=== PATIENT | female | born 1980 | race Caucasian/White ===

== ENCOUNTER → 2022-05-19 | Outpatient (CLI) | payer SELFPAY, OTHER ==
--- NOTE | 2022-05-19 10:27 | CT_ITS ---
STUDY: CT ABDOMEN AND PELVIS WITH CONTRAST REASON FOR EXAM: Female, 41 years old. PELVIC/PERINEAL PAIN. Worsening pain. RADIATION DOSAGE (If Supplied By Facility): CTDIvol = ( 11.9 ) mGy, DLP = ( 682.77 ) mGycm TECHNIQUE: Transaxial images were obtained from the dome of the diaphragm to the symphysis pubis with oral contrast. Oral and amp; IV Readi-CAT and amp; 100mL Isovue-300 was administered. Sagittal and coronal images were reconstructed. Individualized dose optimization techniques were used for this CT. COMPARISON: None. FINDINGS: The visualized lung bases are unremarkable. The visualized portions of the heart are within normal limits. Normal liver. Normal gallbladder and extrahepatic biliary system. Normal spleen. Normal pancreas. Normal bilateral adrenal glands. Normal right kidney. Normal left kidney. There is a small hiatal hernia. Normal small intestine. A large amount of fecal material is seen in the right hemicolon. The patient is status post appendectomy. Normal abdominal aorta. Normal inferior vena cava. Normal retroperitoneum. Normal urinary bladder. ESSURE clips are seen in the fallopian tubes bilaterally. A dominant follicle measuring 1.6 cm is seen in the left ovary. There is a small umbilical hernia containing fat. Small benign-appearing bilateral inguinal lymph nodes. Normal osseous structures. CT/Abdomen/Pelvis WITH Contrast IMPRESSION: Large amount of fecal material is seen in the colon. The patient is status post appendectomy. A dominant follicle is seen in the left ovary. Electronically Signed: Cecilio Harkins MD at 12:01 EST ,
== END | disposition home or self-care (01) ==
LOC: CT 10:24
PROVIDERS: Referring Provider Obstetrics & Gynecology; Visit Provider Obstetrics & Gynecology
DX: R10.2 Pelvic and perineal pain (principal); K44.9 Diaphragmatic hernia without obstruction or gangrene; K42.9 Umbilical hernia without obstruction or gangrene; Z90.89 Acquired absence of other organs
CPT/HCPCS: 74177; Q9967

== ENCOUNTER → 2022-07-26 | Outpatient (CLI) | payer OTHER, SELFPAY ==
[2022-07-26 15:55] LABS: Absolute Lymphocyte Count 1.72 X10^3/uL (0.83-4.51); Absolute Neutrophil Count 3.8 X10^3/uL (2.0-7.7); Basophil# 0.03 X10^3/uL; Basophil% 0.5 % (0-1); Eosinophil# 0.11 X10^3/uL; Eosinophils% 1.7 % (0-5); Hematocrit 39.1 % (37-47); Hemoglobin 13.3 g/dL (12.0-15.0); Lymphocyte # 1.72 X10^3/ul (0.83-4.51); Lymphocyte % 27.3 % (19-41); Mean Corpuscular Hgb 30.9 pg (27.0-32.0); Mean Corpuscular Volume 90.7 fL (81-99); Mean Platelet Vol. 9.7 fl (6.2-12.0); Monocyte# 0.65 X10^3/uL; Monocyte% 10.3 % (0-10); NRBC Flagged by Analyzer 0 % (0-5); Neutrophil # 3.77 X10^3/uL (2.7-7.7); Neutrophil % 59.9 % (47-70); Platelet Count 274 K/mm3 (150-450); RBC Distribution Width CV 11.8 % (11.6-14.6); RBC Distribution Width SD 39.5 fl (35.1-43.9); Red Blood Count 4.31 M/mm3 (4.2-5.4); White Blood Count 6.3 K/mm3 (4.4-11.0)
[2022-07-26 16:43] LABS: ALB/GLOB Ratio 1.3 RATIO (0.9-2.4); AST(SGOT) 7 U/L (15-37); Alanine Aminotransfer ALT/SGPT 18 U/L (13-56); Albumin, Serum 4.2 g/dL (3.2-5.0); Alkaline Phosphatase 47 U/L (45-117); Anion Gap 7 (5-15); BUN 14 mg/dL (7-18); BUN/Creat Ratio 17.2 RATIO (10-20); CRP < 2.90 mg/L (0.0-3.0); Calcium,Total 9.2 mg/dL (8.5-10.1); Chloride 109 mmol/L (98-107); Creatinine, Serum 0.81 mg/dL (0.55-1.02); EST Glomerular Filtration Rate 83 mL/min (>60); Est Glom Filt Rate - Afr Amer 100 mL/min (>60); Globulin 3.3 g/dL (2.2-4.2); Glucose 90 mg/dL (74-106); Potassium 3.6 mmol/L (3.5-5.1); Protein, Total 7.5 g/dL (6.4-8.2); Sodium Level 141 mmol/L (136-145); Thyroid Stim Hormone (TSH) 0.98 uIU/mL (0.358-3.74)
[2022-07-26 19:34] LABS: Erythrocyte Sedimentation Rate 4 mm/hr (0-30)
== END | disposition home or self-care (01) ==
LOC: LAB 15:18
PROVIDERS: PCP Family Medicine; Visit Provider Nurse Practitioner Adult Health
DX: K59.00 Constipation, unspecified (principal); R68.81 Early satiety
CPT/HCPCS: 36415; 80053; 84443; 85025; 85652; 86140

== ENCOUNTER 2022-08-10 09:43 | Day surgery (SDC) | payer OTHER, SELFPAY ==
[2022-08-10] VITALS (17 sets, daily range): BP systolic 96–143; BP diastolic 58–103; PULSE 70–111; RESP 14–24; TEMP 36.1–36.5; O2SAT 96–100; BMI 28.1
--- NOTE | 2022-08-10 10:29 | CT_ITS ---
STUDY: CT ABDOMEN AND PELVIS WITH CONTRAST REASON FOR EXAM: Female, 41 years old. Abd pain, constipation RADIATION DOSAGE (If Supplied By Facility): CTDIvol = ( 13.89 ) mGy, DLP = ( 688.46 ) mGycm TECHNIQUE: Transaxial images were obtained from the dome of the diaphragm to the symphysis pubis without oral contrast. IV 100mL Isovue-370 was administered. Sagittal and coronal images were reconstructed. Individualized dose optimization techniques were used for this CT. COMPARISON: Comparison is made with prior study dated 05/19/2022. FINDINGS: The visualized lung bases are unremarkable. The visualized portions of the heart are within normal limits. Normal liver. Normal gallbladder and extrahepatic biliary system. Normal spleen. Normal pancreas. Normal bilateral adrenal glands. Normal right kidney. Normal left kidney. Normal visualized stomach. Normal small intestine. Normal colon. The appendix is visualized and appears normal. Normal abdominal aorta. Normal inferior vena cava. Normal retroperitoneum. Normal urinary bladder. Minimal amount of free fluid is seen in the cul-de-sac. Small follicles are seen in the left ovary.ESSURE devices are seen in both fallopian tubes. IUD is seen within the anterior peritoneal fat in the right lower quadrant. Normal abdominal wall. Normal osseous structures. CT/Abdomen/Pelvis W IV Cont ONLY IMPRESSION: Minimal amount of free fluid in the cul-de-sac. Small follicles are seen in both ovaries. IUD device is seen in the peritoneal fat overlying the right lower anterior abdominal wall. Electronically Signed: Cecilio Harkins MD at 12:15 EST ,
[2022-08-10 10:50] LABS: Absolute Lymphocyte Count 1.38 X10^3/uL (0.83-4.51); Absolute Neutrophil Count 3.2 X10^3/uL (2.0-7.7); Basophil# 0.03 X10^3/uL; Basophil% 0.6 % (0-1); Eosinophils% 1.9 % (0-5); Hematocrit 40.3 % (37-47); Hemoglobin 14.5 g/dL (12.0-15.0); Lymphocyte # 1.38 X10^3/ul (0.83-4.51); Lymphocyte % 26.6 % (19-41); Mean Corpuscular Hgb 31.9 pg (27.0-32.0); Mean Corpuscular Volume 88.8 fL (81-99); Mean Platelet Vol. 9.5 fl (6.2-12.0); Monocyte# 0.48 X10^3/uL; Monocyte% 9.3 % (0-10); NRBC Flagged by Analyzer 0 % (0-5); Neutrophil # 3.18 X10^3/uL (2.7-7.7); Neutrophil % 61.4 % (47-70); Platelet Count 239 K/mm3 (150-450); RBC Distribution Width CV 11.6 % (11.6-14.6); RBC Distribution Width SD 37.5 fl (35.1-43.9); Red Blood Count 4.54 M/mm3 (4.2-5.4); White Blood Count 5.2 K/mm3 (4.4-11.0)
[2022-08-10] MEDS: Morphine 4 MG/ML Syringe IV (10:53)
[2022-08-10] MEDS: 0.9% Normal Saline 1,000 ML 1000 ML IV (10:54)
[2022-08-10 10:58] LABS: Mucous, Urine 0 SEEN /hpf (<or=2+); Red Blood Cells-Urine 0 SEEN /hpf (0-5)
[2022-08-10 11:01] LABS: ALB/GLOB Ratio 1.5 RATIO (0.9-2.4); AST(SGOT) 5 U/L (15-37); Alanine Aminotransfer ALT/SGPT 16 U/L (13-56); Albumin, Serum 4.4 g/dL (3.2-5.0); Alkaline Phosphatase 38 U/L (45-117); Anion Gap 9 (5-15); BUN 13 mg/dL (7-18); BUN/Creat Ratio 16.5 RATIO (10-20); Calcium,Total 9.4 mg/dL (8.5-10.1); Chloride 110 mmol/L (98-107); Creatinine, Serum 0.79 mg/dL (0.55-1.02); EST Glomerular Filtration Rate 86 mL/min (>60); Est Glom Filt Rate - Afr Amer 104 mL/min (>60); Estimated Creatinine Clearance 75.62 ml/min; Globulin 2.9 g/dL (2.2-4.2); Glucose 96 mg/dL (74-106); Potassium 3.4 mmol/L (3.5-5.1); Protein, Total 7.3 g/dL (6.4-8.2); Sodium Level 141 mmol/L (136-145)
[2022-08-10 11:01] LABS: Color, Urine Straw (Yellow); Glucose, Dipstick Normal (Normal); Ketone-Dipstick Negative (Negative); Leukocyte Esterase-Dipstick 25 /ul (Negative); Nitrite-Dipstick Negative (Negative); Occult Blood-Urine Negative /ul (Negative); Protein-Dipstick Negative (Negative); Urine Bilirubin Dipstick Negative (Negative); Urine Clarity Sl. Cloudy (Clear); Urine Urobilinogen Normal (Normal); Urine pH 6.5 (5.0 - 8.0)
[2022-08-10 11:07] LABS: Bacteria 1+ /hpf (None Seen); Internal QC Validated? YES +Cl - CLEAR BKGD; Pregnancy, Urine Negative Negative; Squamous Epithelial Cells - UA 0-5 SEEN /hpf (5-10); White Blood Cells 0-5 SEEN /hpf (0-5)
[2022-08-10 11:10] LABS: Lactic Acid 1.1 mmol/L (0.4-1.9)
--- NOTE | 2022-08-10 13:35 | HP.PCM.OB_ITS ---
History and Physical Date of Admission: 08/10/22 Chief complaint: Abdominal pain History present illness: 41-year-old arrives with chronic abdominal pain that worsened today. Patient feels pain several times a week but today felt much worse. Feels constant cramping and pain. Denies fevers, chills, chest pain, shortness of breath. Obstetric history: with a history of vaginal deliveries x3 Past medical history: None Medications: None Past surgical history: Open appendectomy, oophorectomy, Essure device placement, D&C x2 Allergies: Compazine Family history: Denies history DVT or PE Social history: Denies smoking, alcohol use, drug use Review of systems: Besides above pertinent positives a full review of systems was performed and found to be negative Physical exam: Vitals: Blood pressure 136/103 pulse 70 respiratory 14 temperature 97 Fahrenheit SPO2 100% on room air General: Overall comfortable mildly ill HEENT: Normocephalic/atraumatic no cervical lymphadenopathy Cardiac/respiratory: No use of accessory muscles, nonlabored breathing Abdomen: Soft, mildly bloated, mildly tender in all 4 quadrants no rebound tend erness or guarding Extremities: No peripheral edema normal peripheral pulses Psych: Normal affect, demeanor nonpressured speech Labs: White blood cell count 5.2, hemoglobin 14.5, hematocrit 40.3% platelets 239. Sodium 141 potassium 3.4 creatinine 0.79 lactic acid 1.1 AST [address] of abdomen pelvis: May CT of abdomen pelvis after further review shows no radiology reading of abdominal IUD, further review of imaging myself notes abdominal IUD. CT scan today 08/10/2022 with again abdominal IUD on imaging and radiology report Assessment and plan: 41-year-old arrives with chronic abdominal pain status post GI consult treated for chronic constipation with minimal improvements kevin worsening today. Given morphine in the ER feels much improved. CT scan was performed and noted to have IUD in the abdominal cavity. After review of previous CT scan in May, radiology report shows no comments on IUD but after further review of May CT scan imaging noted to have abdominal IUD. Again reviewed CT scan for today, both radiology and seen on images and abdominal IUD is seen. Educated patient on May findings and lack thereof documentation along with findings for today. Educated patient on abdominal IUD, patient states she is had this IUD in the abdomen likely for 10 years previously had a Essure devices placed and IUD could not be found assumed to have fallen out vaginally at that time. Educated patient on need to remove IUD, discussed this may not be the complete pathology of her current discomfort but should not remain in her abdomen and can be a cause of her current abdominal pathology/symptoms. Educated patient on diagnostic laparoscopy and removal of IUD risk benefits alternatives include but are not limited to visceral or vascular injury, prolonged hospitalization, blood loss and need for transfusion, reoperation. Educated patient on risks with previous open procedures and risks for GI injury and possible need for general surgery consult pending findings on diagnostic laparoscopy. Patient states understanding and wished to proceed. All questions were answered and consent was signed. Patient to remain n.p.o., surgery called for scheduling. ER notified
--- NOTE | 2022-08-10 13:51 | EX.ED.DYSGE1 ---
HPI History of Present Illness Chief Complaint: Constipation Informant: patient Narrative Narrative: Patient is a 41-year-old female presenting with abdominal pain and constipation. She has not a bowel movement 8 days. She has been seen by GI and actually had a CT of her abdomen and pelvis in May which showed a large stool burden. She was placed on MiraLAX which she has been taking. She states over the weekend to this week her pain is worse. Her tried to get her to come in 2 days ago but she finally came in today when she could not sleep at all. She has a history of appendectomy, tubal ligation and Essure procedure. She denies any urinary symptoms such as abnormal vaginal discharge, bleeding or dysuria. She had some nausea but no vomiting. She has been having diarrhea intermittently since Monday denies any blood. Denies any fever. No other complaints at this time. [facility] Medical History Abdominal pain Difficulty balancing when standing Fatigue Hx of appendicitis Pelvic and perineal pain Home Medications No Known/Unobtainable [No Known Home Medications] 12/10/15 [History Last Taken Unknown] Allergy/AdvReac Type Severity Reaction Status Date / Time prochlorperazine AdvReac stiff neck Verified 05/23/22 09:45 [From Compazine] and couldn't breath prochlorperazine edisylate AdvReac stiff neck Verified 05/23/22 09:45 [From Compazine] and couldn't breath prochlorperazine maleate AdvReac stiff neck Verified 05/23/22 09:45 [From Compazine] and couldn't breath promethazine HCl AdvReac urinary Verified 05/23/22 09:45 [From Phenergan] retention Family History Grandfather Cancer Heart disease Son Heart defect Surgical History H/O tubal ligation History of dilatation and curettage Social History household members: family housing: house Smoking Status: Never smoker second hand exposure: No alcohol intake: never substance use type: does not use ROS ROS ED Constitutional Constitutional ED: Denies chills or fever(s) Respiratory/Chest Respiratory/Chest: Denies cough Gastrointestinal Gastrointestinal: Reports abdominal pain, constipation, diarrhea and nausea; Denies vomiting Genitourinary Genitourinary ED: Denies dysuria, hematuria or urinary frequency Musculoskeletal Musculoskeletal: Denies arthralgias or myalgias Integumentary Denies rash Neurologic Neurologic: Denies headache(s) EXAM Physical Exam Const Vital Signs: 08/10/22 09:44 08/10/22 13:46 Temperature 97 F L 97.7 F L Temperature Source Temporal Temporal Pulse Rate 70 74 Respiratory Rate 14 18 Blood Pressure 136/103 H 138/75 H Blood Pressure Mean 114 96 Blood Pressure Source Monitor Pulse Ox 100 100 Oxygen Delivery Method Room Air Room Air Positive well nourished and well developed Constitutional Narrative: Uncomfortable secondary to abdominal pain General Appearance ED: well developed Eyes PERRL and EOMs intact bilaterally Neck supple Chest Wall inspection of chest normal Resp normal respiratory effort and clear to auscultation bilaterally Cardio regular rate, regular rhythm and no murmurs GI GI Narrative: Diffusely tender, no rebound tenderness, rigidity or guarding. Tenderness is mildly on proportion to exam. Hypoactive bowel sounds. No stool in the rectal vault. Normal external rectal exam. Back/Spine no CVA tenderness Psych mental status grossly normal Skin no rashes or lesions noted and no wounds MDM MDM MDM Narrative Medical decision making narrative: Patient is evaluated for constipation increased abdominal pain. Patient appears quite uncomfortable on exam. Differential includes diverticulitis, constipation, small bowel obstruction as well as urine/kidney infection. Patient is having significant pain and does not have any signs of fecal impaction on physical exam. Is given dose of morphine as well as fluids with some improvement of her symptoms. CBC, CMP and lactate largely normal. Urinalysis is consistent with contamination I do not think she has a kidney or urine infection as a cause of her symptoms. Because of her degree of pain, CT abdomen pelvis is repeated. Patient has a minimal amount of free fluid in the cul-de-sac, small follicles in both ovaries and IUD is seen in the peritoneal fat overlying the right lower anterior abdominal wall. There is no comment on IUD in the peritoneum/abdominal cavity on her CT on 05/19/2022 however I independently reviewed that film and there was an IUD more in the periumbilical region at that time. Case discussed with the patient's RADIOLOGIST PHYSICIAN l, Dr. Iglesias who reviewed the films and came down to evaluate the patient. She continues to have pain and he recommends surgery for removal of the IUD in case is the cause of her pain. Patient is agreeable with this. Patient is transferred to the OR in stable condition. She remains hemodynamically stable. History & Record Review Additional record(s) reviewed:: Prior outpatient record (See MDM, CT of the abdomen pelvis) and Other (GI office note from 07/26/2022-labs ordered, patient 6 months of abdominal cramping change in bowel habits) Lab Data Labs: Laboratory Results - last 24 hr 08/10/22 08/10/22 08/10/22 10:35 10:35 10:35 WBC 5.2 RBC 4.54 Hgb 14.5 Hct 40.3 MCV 88.8 MCH 31.9 MCHC 36.0 RDW Std Deviation 37.5 RDW Coeff of Christina 11.6 Plt Count 239 MPV 9.5 Immature Gran % (Auto) 0.200 Neut % (Auto) 61.4 Lymph % (Auto) 26.6 Pickett % (Auto) 9.3 Eos % (Auto) 1.9 Baso % (Auto) 0.6 Absolute Neuts (auto) 3.2 Absolute Lymphs (auto) 1.38 Nucleated RBC % 0 Sodium 141 Potassium 3.4 L Chloride 110 H Carbon Dioxide 22.0 Anion Gap 9 BUN 13 Creatinine 0.79 Estim Creat Clear Calc 75.62 Est GFR (MDRD) Af Amer 104 Est GFR (MDRD) Non-Af 86 BUN/Creatinine Ratio 16.5 Glucose 96 Lactic Acid 1.1 Calcium 9.4 Total Bilirubin 0.50 AST 5 L ALT 16 Alkaline Phosphatase 38 L Total Protein 7.3 Albumin 4.4 Globulin 2.9 Albumin/Globulin Ratio 1.5 Urine Color Urine Clarity Urine pH Ur Specific [place] Urine Protein Urine Glucose (UA) Urine Ketones Urine Occult Blood Urine Nitrite Urine Bilirubin Urine Urobilinogen Ur Leukocyte Esterase Urine RBC Urine WBC Ur Squamous Epith Cells Urine Bacteria Urine Mucus Urine Test 08/10/22 10:54 WBC RBC Hgb Hct MCV MCH MCHC RDW Std Deviation RDW Coeff of Christina Plt Count MPV Immature Gran % (Auto) Neut % (Auto) Lymph % (Auto) Pickett % (Auto) Eos % (Auto) Baso % (Auto) Absolute Neuts (auto) Absolute Lymphs (auto) Nucleated RBC % Sodium Potassium Chloride Carbon Dioxide Anion Gap BUN Creatinine Estim Creat Clear Calc Est GFR (MDRD) Af Amer Est GFR (MDRD) Non-Af BUN/Creatinine Ratio Glucose Lactic Acid Calcium Total Bilirubin AST ALT Alkaline Phosphatase Total Protein Albumin Globulin Albumin/Globulin Ratio Urine Color Straw Urine Clarity Sl. Cloudy Urine pH 6.5 Ur Specific [place] 1.010 Urine Protein Negative Urine Glucose (UA) Normal Urine Ketones Negative Urine Occult Blood Negative Urine Nitrite Negative Urine Bilirubin Negative Urine Urobilinogen Normal Ur Leukocyte Esterase 25 H Urine RBC 0 SEEN Urine WBC 0-5 SEEN Ur Squamous Epith Cells 0-5 SEEN Urine Bacteria 1+ Urine Mucus 0 SEEN Urine Test Negative Radiography Diagnostic Testing: Clinical Impression(s) from Imaging Studies Abdomen/Pelvis CT 08/10/22 10:29 IMPRESSION: Minimal amount of free fluid in the cul-de-sac. Small follicles are seen in both ovaries. IUD device is seen in the peritoneal fat overlying the right lower anterior abdominal wall. Electronically Signed: Cecilio Harkins MD at 12:15 EST , Discharge Plan Triage Chief Complaint: Constipation ED Provider: Nel Murphy Dx/Rx/DC Orders Clinical Impression: Uterine perforation by intrauterine contraceptive device, Abdominal pain Primary Care Provider: Yogesh Blood Disposition Disposition: Acute Care Hospital [facility] Discharge Date/Time: 08/10/22 13:57
[2022-08-10] MEDS: 0.9% Normal Saline 1,000 ML 15 ML IV ×3 (14:18→16:31)
[2022-08-10] MEDS: Sugammadex Sodium 200 MG/2 ML VIAL IV (15:10)
--- NOTE | 2022-08-10 15:17 | DCINST_ITS ---
Discharge Instructions Diet Discharge Diet: No restrictions Activity Discharge Activity: Return to Normal Activity, May Drive, May Shower and - (No tub baths for 2-week) May resume sexual activity in: 4-6 weeks Lifting Restrictions: No lifting over 25 pounds for 2 to 3-week Dressing / Incision Call your doctor if your incision/area has: Continuous Slow Oozing and Foul Smelling Discharge Call your doctor if you observe: Fever of 101 or Higher, Shortness of breath and Chest pain Follow Up Care Please Follow Up With: Taqueria Iglesias MD When: 2 weeks postoperatively Test Results: Test results from this visit will be discussed in further detail at your follow- up appointment, if applicable. Discharge Plan Admission Attending Provider: Taqueria Iglesias Primary Care Provider: Yogesh Blood Discharge Orders/Prescriptions Prescriptions: No Action No Known Home Medications Referrals / Follow Up: Yogesh Blood DO [Primary Care Provider] - Disposition Disposition (needs filled in before D/C Order can be placed): Home, Self Care
--- NOTE | 2022-08-10 15:18 | OP.PCM_ITS ---
Report of Operation Date of Procedure: 08/10/22 Pre-Operative Diagnosis: Abdominal pain, abdominal IUD Post-Operative Diagnosis: Abdominal pain, abdominal IUD Surgery/Procedure Performed:: Diagnostic laparoscopy, removal of abdominal IUD Description of Surgical Findings:: Surgeon: Taqueria Iglesias MD Anesthesia: General EBL: 5 cc Urine output: 400 cc IV fluids: 1000 cc Complications: None Specimen: None Findings: IUD noted right lower quadrant embedded in omentum. No signs of small intestine or large intestine involvement. Uterus with normal uterus, right fallopian tube, right ovary. Left ovary within normal limits. Left fallopian tube absent with multiple surgical clips placed at previous operative site. Right Essure device palpated and noted to be appropriately in the fallopian tube. Left Essure device could not be palpated or seen with absence of left fallopian tube Consent: Patient arrives with abdominal pain noted on CT to have abdominal IUD. Patient elects for diagnostic laparoscopy, removal of abdominal IUD. Patient understands risks of the procedure include but are not limited to visceral or vascular injury, prolonged hospitalization, blood loss need for transfusion, reoperation. Patient state understanding wish to proceed. All questions were answered and consent was signed. Procedure: Patient was brought back to the OR where general anesthesia was found to be adequate. Patient was prepared and draped in dorsolithotomy position with yellowfin stirrups. A weighted speculum is placed in the posterior aspect of vagina and cervical dilators were used to dilate cervix. Uterine manipulator was placed. Varies needle was inserted at the umbilicus water safety test could not be passed. 5 mm supraumbilical midline incision was made. 5 mm trocar was inserted under direct visualization via StemPath. Abdomen was insufflated and above findings were noted. Left lower quadrant 5 mm trocar and left upper quadrant 5 mm trocar were inserted under direct visualization. Using an atraumatic grasper and a LigaSure device the IUD was dissected from the omentum and removed from the abdominal cavity. Good hemostasis was noted at the omentum. No further pathology with the GI tract was noted from abdominal IUD. Exploration of the abdomen and pelvis showed the above findings. Overall good hemostasis and no further pathology noted. No signs of infection or other pathology. Abdomen was desufflated trocars were removed under direct visualization. Uterine manipulator was removed. Good hemostasis was noted. Trocar sites were closed in a subcutaneous fashion. Skin glue was applied to the incisions. Good hemostasis was noted. All counts were correct x2. Patient tolerated procedure well and was brought to recovery in stable condition. water taxi boat mate: Galina Hogan
[2022-08-10] MEDS: Ketorolac 30 MG/ML Syringe IV (15:34)
[2022-08-10] MEDS: Ondansetron ODT 4 MG Tablet PO (17:27)
--- NOTE | 2022-08-10 18:30 | SUR.PHASEII ---
PATIENT VERY DROWSY BUT SHE HAD A LOT OF MEDICATIONS IN PACU PHASE. SP02 DROPPED IN THE 70'S AT TIMES WHEN SHE WAS SLEEPING. I WOULD PUT HER ON O2 2 LITERS WHILE SHE WAS DOSING OFF. SHE BOUNCED RIGHT UP TO 100 % WHILE ON IT. I WAS EVENTUALLY ABLE TO WEEN HER OFF OF IT AROUND 1900. TOLD THIS NURSE THAT SHE DOES SNORE SOME AND WITNESSED HER STOP BREATHING AT TIMES.
[2022-08-10] MEDS: Lactated Ringers 1,000 ML 15 ML IV (18:42)
--- NOTE | 2022-08-10 19:25 | SUR.PHASEII ---
THIS NURSE MOVED THE PATIENT OUT OF PACU DUE TO THE STRONG EXHAUST SMELL IN PACU. WE MOVED HER INTO ROOM 3 IN . PATIENT IS STILL VERY SLEEPY BUT TRYING TO GET AWAKE. SHE IS ALSO TEARFUL AT TIMES. SHE REPORTS NO PAIN AND IS EATING A CRACKER CURRENTLY.
[2022-08-10] MEDS: Ondansetron 4 MG/2 ML Vial IV (19:59)
--- NOTE | 2022-08-10 20:25 | SUR.PHASEII ---
PATIENT VOMITED ANOTHER TIME AFTER ZOFRAN WAS GIVEN IV. I OFFERED TO CALL DR. COHEN AND OBTAIN A PRESCRIPTION OF ZOFRAN ODT SO THAT THEY HAVE IT IF THEY NEED IT. THE SAID NO SHE DOESN'T LIKE TO TAKE ANY MEDICATIONS. I ALSO OFFERED TO GET AN ORDER FOR AN SCOPOLAMINE PATCH AND THEY REFUSED ALSO. I MADE SURE THAT THEY HAD THE NUMBER TO CALL IF THEY NEED TO GET A HOLD OF DR. COHEN. PATIENT WAS DISCHARGED HOME WITH EXTRA EMESIS BAGS AND QUEEZEES. I WHEELED HER OUT TO THE CAR AND PUT HER INTO THE CAR. NO COMPLAINTS AT THAT TIME.
== END 2022-08-10 20:20 | disposition home or self-care (01) ==
LOC: ED 13:38 → SDC 13:43 → AC 13:44
PROVIDERS: Emergency Provider Emergency Medicine; PCP Family Medicine; Visit Provider Obstetrics & Gynecology
PROC: (CPT 49320; principal; 2022-08-10 13:45)
DX: R10.9 Unspecified abdominal pain (principal); Z30.432 Encounter for removal of intrauterine contraceptive device; G89.29 Other chronic pain; K59.00 Constipation, unspecified; T83.39XA Other mechanical complication of intrauterine contraceptive device, initial encounter; X58.XXXA Exposure to other specified factors, initial encounter
CPT/HCPCS: 49320; 58301; 00840; 74177; 80053; 81001; 81025; 83605; 85025; 99282; J7030; J7120; Q9967; A4216; J2405

== ENCOUNTER → 2022-11-15 | Outpatient (CLI) | payer OTHER, SELFPAY ==
[2022-11-22 15:09] LABS: HPV APTIMA, High Risk Negative (Negative)
== END | disposition home or self-care (01) ==
LOC: LABSPEC 11:17
PROVIDERS: PCP Family Medicine; Visit Provider Obstetrics & Gynecology
DX: Z12.4 Encounter for screening for malignant neoplasm of cervix (principal)
CPT/HCPCS: 87624; 88175; G0145

== ENCOUNTER 2024-12-23 09:36 | Emergency (ER) | payer OTHER, SELFPAY ==
[2024-12-23 09:36] VITALS: BP 142/96; PULSE 74; RESP 14; TEMP 37.2; O2SAT 98; BMI 28.1
--- NOTE | 2024-12-23 09:52 | US_ITS ---
PROCEDURE: TRANSVAGINAL NON- 12/23/2024 REASON FOR EXAM: PAIN TECHNIQUE: TRANSVAGINAL NON- COMPARISON: None FINDINGS: The uterus measures 7.5 x 4.9 x 3.8 cm and is anteverted. The endometrium measures 0.3 cm. There is no uterine fibroid or mass. A nabothian cyst is noted. The right ovary measures 4.4 x 1.8 x 2.3 cm, volume = 9.37 cc. The left ovary measures 2.5 x 2.3 x 1.5 cm, volume = 4.64 cc. Bilateral tubal implants are visible. There is no adnexal mass or free fluid. US/Transvaginal Non- IMPRESSION: No uterine fibroid or mass is identified. The endometrium measures 0.3 cm. Reading [facility]
--- NOTE | 2024-12-23 09:52 | CT_ITS ---
PROCEDURE: ABDOMEN/PELVIS W IV CONT ONLY 12/23/2024 REASON FOR EXAM: PAIN Pain in the right groin. TECHNIQUE: ABDOMEN/PELVIS W IV CONT ONLY Coronal and Sagittal reconstruction series were provided. CONTRAST: Isovue-300 VOLUME: 100 mL One or more dose reduction techniques were used (e.g., Automated exposure control, adjustment of the mA and/or kV according to patient size, use of iterative reconstruction technique. RADIATION DOSE SUMMARY: CTDlvol: 11.6 mGy DLP: 661.12 mGycm COMPARISON: Prior study dated August 10, 2022. FINDINGS: Lung bases: Unremarkable Liver: 6 mm cyst in the superior posterior aspect of the right lobe of the liver. Gallbladder: Unremarkable Spleen: Normal size. Pancreas: Normal size without evidence of mass surrounding inflammation or ductal dilation. Adrenals: Unremarkable Kidneys: Fullness of the right renal pelvis although no rufina hydronephrosis is seen. This may represent an extrarenal pelvis. Bladder: Unremarkable Reproductive Organs: Essure clips are seen within both fallopian tubes. Bowel: Unremarkable Appendix: Unremarkable Lymph nodes: Unremarkable. Vasculature: The abdominal aorta and IVC are normal. Peritoneum / Retroperitoneum: Small umbilical hernia containing fat. No evidence of inguinal hernias. Bones: Degenerative changes of the spine. CT/Abdomen/Pelvis W IV Cont ONLY IMPRESSION: No acute abnormality is seen. Reading Location: [place] [id number]
--- NOTE | 2024-12-23 09:54 | ED.VIS.GI ---
HPI HPI - GI History of Present Illness Chief Complaint: Abd Pain Informant: patient Narrative Narrative: Presents with sudden right lower quadrant pelvis pain initially on Monday. Monday she felt fine. She felt like something ruptured. Had pain throughout the day however after that it subsided symptoms returned today 4 days later. Appendectomy she has had salpingectomy from ectopic in the past tubal ligation. History ovarian cyst. Also reports had diagnostic laparoscopy a couple years ago with findings here for IUD in her abdomen. States felt feverish. No urinary symptoms. Mild nausea no vomiting. Started her menstrual period yesterday. Prior similar symptoms: No PFSH PFSH Medical History Pelvic and perineal pain Abdominal pain Hx of appendicitis Difficulty balancing when standing Fatigue Home Medications ?Medication ?Instructions ?Recorded ?Last Taken ?Type No Known/Unobtainable [No Known 12/10/15 Unknown History Home Medications] Allergy/AdvReac Type Severity Reaction Status Date / Time prochlorperazine (From AdvReac stiff neck Verified 12/23/24 09:37 Compazine) and couldn't breath prochlorperazine edisylate AdvReac stiff neck Verified 12/23/24 09:37 (From Compazine) and couldn't breath prochlorperazine maleate AdvReac stiff neck Verified 12/23/24 09:37 (From Compazine) and couldn't breath promethazine HCl (From AdvReac urinary Verified 12/23/24 09:37 Phenergan) retention Family History Grandfather Cancer Heart disease Son Heart defect Surgical History H/O tubal ligation History of dilatation and curettage Social History household members: family housing: house Smoking Status: Never smoker second hand exposure: No alcohol intake: never substance use type: does not use ROS ROS ED Constitutional Constitutional ED: Denies chills, fever(s) or sweats ENT ENT ED: Denies sore throat Cardiovascular Cardiovascular: Denies chest pain, leg edema, palpitations or racing heartbeat Respiratory/Chest Respiratory/Chest: Denies cough, dyspnea or dyspnea on exertion Gastrointestinal Gastrointestinal: Reports abdominal pain and nausea; Denies diarrhea or vomiting Genitourinary Genitourinary ED: Denies dysuria, hematuria or urinary frequency Musculoskeletal Musculoskeletal: Denies back pain, extremity pain or neck pain Integumentary Denies rash or wounds Neurologic Neurologic: Denies headache(s), paresthesias or weakness EXAM Physical Exam Const Vital Signs: 12/23/24 09:36 12/23/24 11:36 12/23/24 12:26 Temperature 99 F 98.7 F Temperature Source Temporal Pulse Rate 74 80 80 Respiratory Rate 14 18 Blood Pressure 142/96 H 120/70 120/70 Blood Pressure Mean 111 86 86 Pulse Ox 98 99 99 Oxygen Delivery Method Room Air Positive well nourished and well developed General Appearance ED: well developed and NAD HEENT Reports moist mucous membranes normocephalic and atraumatic Eyes General Eye ED: Yes normal appearance of both eyes Neck full ROM Chest Wall Chest: Negative for tenderness Resp normal respiratory effort and normal air movement Effort and Inspection: symmetric chest movement; Negative for respiratory distress Cardio regular rate, regular rhythm and no murmurs Peripheral Pulses: pulses 2+ throughout GI normal to inspection, nondistended, normoactive bowel sounds GI Narrative: Generalized tenderness however pain more right lower quadrant and pelvis. Negative Mueller's. Palpation: Negative for guarding or rebound tenderness present Extremity normal to inspection General Extremety ED: Negative for edema or tenderness General Extremity: Negative for edema Neuro oriented x3 and no sensory deficits noted Sensorium / Orientation: awake and alert Skin no rashes or lesions noted and no wounds MDM MDM MDM Narrative Medical decision making narrative: Interventions / MDM: Differential diagnosis: Abdominal pain Diagnosis considered but do not suspect: Ruptured cyst, perforation, kidney stones, colitis, small bowel obstruction however CT are negative. My EKG interpretation: N/A Imaging independently reviewed and interpreted by myself: CT abdomen pelvis IV contrast: No acute findings. Transvaginal pelvic ultrasound: No acute process. External documents reviewed: N/A Test considered but not ordered:N/A ED course: Nontoxic generalized abdominal pain. She started 5 days ago. Declines any medications. History of appendectomy history ovarian cyst. Will check labs and urine and hCG. Generalized pain CT abdomen pelvis was obtained for evaluation. In addition transvaginal ultrasound due to history ovarian cyst. She workup labs normal CT scan ultrasound negative. Unclear etiology on her findings. Urine with blood however she is on her menstrual period. She did not require any medication should use Tylenol or Motrin as needed. I discussed return precautions. All questions were answered. Re-evaluation: stable Disposition discussed with patient/family/significant other: Patient Case discussed with consulting clinician: N/A This note was generated with [email or web address] dictation software. It may contain incorrect words, spelling, and punctuation that were not noted in checking the note before signing. Lab Data Attestation: I reviewed the patient's lab results. Labs: Laboratory Results - last 24 hr 12/23/24 12/23/24 10:13 10:25 WBC 4.5 RBC 4.51 Hgb 14.0 Hct 40.5 MCV 89.8 MCH 31.0 MCHC 34.6 RDW Std Deviation 39.0 RDW Coeff of Christina 11.9 Plt Count 245 MPV 9.7 Immature Gran % (Auto) 0.200 Neut % (Auto) 59.6 Lymph % (Auto) 27.5 Harmon % (Auto) 9.2 Eos % (Auto) 3.1 Baso % (Auto) 0.4 Absolute Neuts (auto) 2.7 Absolute Lymphs (auto) 1.23 Sodium 140 Potassium 3.9 Chloride 107 Carbon Dioxide 22.3 Anion Gap 11 BUN 13 Creatinine 0.73 Estim Creat Clear Calc 91.95 Est GFR (MDRD) Non-Af 105 BUN/Creatinine Ratio 18.1 Glucose 97 Calcium 9.4 Serum , Qual NEGATIVE Urine Color Red Urine Clarity Sl. Cloudy Urine pH 6.5 Ur Specific [place] 1.010 Urine Protein 100 H Urine Glucose (UA) Normal Urine Ketones Negative Urine Occult Blood 250 H Urine Nitrite Negative Urine Bilirubin Negative Urine Urobilinogen Normal Ur Leukocyte Esterase 25 H Urine RBC 10-25 SEEN Urine WBC 0-5 SEEN Ur Squamous Epith Cells 0-5 SEEN Urine Bacteria 0 SEEN Urine Mucus 0 SEEN Radiography Diagnostic Testing: Clinical Impression(s) from Imaging Studies Abdomen/Pelvis CT 12/23/24 09:52 IMPRESSION: No acute abnormality is seen. Reading Location: [facility] Transvaginal US 12/23/24 09:52 IMPRESSION: No uterine fibroid or mass is identified. The endometrium measures 0.3 cm. Reading [facility] Triage Chief Complaint: Abd Pain ED Provider: Nate Harp Dx/Rx/DC Orders Clinical Impression: Abdominal pain, Benign liver cyst Instructions: Abdominal Pain Prescriptions: No Action No Known Home Medications Primary Care Provider: Care Physician,No Primary Referrals: Y[facility] Blood, [Non-Staff] - 1-2 Weeks Activity Restrictions/Additional Instructions: Pelvic ultrasound normal ovaries no cyst. No free fluid. Abdominal CT incidental hepatic cysts. No other acute findings. Labs normal urine with blood however you are on your menstrual period. No infection. Monitor symptoms. Tylenol or Motrin as needed follow-up with your doctor. Develop worsening symptoms bloating and vomiting, return to the ED for reevaluation. Print Language: Pakistani Disposition Disposition: Home, Self Care Discharge Date/Time: 12/23/24 12:30
[2024-12-23 10:30] LABS: Hematocrit 40.5 % (37-47); Hemoglobin 14.0 g/dL (12.0-15.0); Mean Corp Hgb Conc 34.6 g/dL (32-36); Mean Corpuscular Volume 89.8 fL (81-99); Mean Platelet Vol. 9.7 fl (6.2-12.0); Platelet Count 245 K/mm3 (150-450); RBC Distribution Width CV 11.9 % (11.6-14.6); RBC Distribution Width SD 39.0 fl (35.1-43.9); Red Blood Count 4.51 M/mm3 (4.2-5.4); White Blood Count 4.5 K/mm3 (4.4-11.0)
[2024-12-23 10:31] LABS: Immature Granulocytes Count 0.010 X10^3/uL (0.0-0.0)
[2024-12-23 10:32] LABS: Color, Urine Red (Yellow); Glucose, Dipstick Normal (Normal); Ketone-Dipstick Negative (Negative); Leukocyte Esterase-Dipstick 25 /ul (Negative); Mucous, Urine 0 SEEN /hpf (<or=2+); Nitrite-Dipstick Negative (Negative); Occult Blood-Urine 250 /ul (Negative); Protein-Dipstick 100 mg/dl (Negative); Specific Gravity, Urine 1.010 (1.002-1.030); Urine Bilirubin Dipstick Negative (Negative)
[2024-12-23 10:38] LABS: Red Blood Cells-Urine 10-25 SEEN /hpf (0-5)
[2024-12-23 10:39] LABS: Squamous Epithelial Cells - UA 0-5 SEEN /hpf (5-10)
[2024-12-23 10:40] LABS: Internal QC Validated? YES +Cl - CLEAR BKGD; Pregnancy, Serum, hCG Quali. NEGATIVE Negative; Record Kit Lot#, Serum Preg. 0000962302
[2024-12-23 11:24] LABS: Anion Gap 11 (5-15); BUN 13 mg/dL (4-19); BUN/Creat Ratio 18.1 RATIO (10-20); Calcium,Total 9.4 mg/dL (7.6-11.0); Carbon Dioxide 22.3 mmol/L (21.0-32.0); Chloride 107 mmol/L (98-108); Estimated Creatinine Clearance 91.95 ml/min (50-250); Glucose 97 mg/dL (70-99); Potassium 3.9 mmol/L (3.3-5.1)
[2024-12-23 11:36] VITALS: BP 120/70; PULSE 80; O2SAT 99
[2024-12-23] MEDS: 0.9% Normal Saline (500mL Bag) 500 ML 1000 ML IV (11:40)
[2024-12-23 12:26] VITALS: BP 120/70; PULSE 80; RESP 18; TEMP 37.1; O2SAT 99
--- NOTE | 2024-12-23 14:50 | CM.ED ---
Social Work Reason for visit: No PCP Patient verified that she does not currently have a PCP. Patient also expressed interest in finding a new Obstetrics physician. [facility] Provider list was given. Patient thankful for same. Mckenna Alvarez, GRIPS, [employer]SP[employer] TECHNICIAN
== END 2024-12-23 12:30 | disposition home or self-care (01) ==
PROVIDERS: Emergency Provider Emergency Medicine; Visit Provider Emergency Medicine
DX: R10.31 Right lower quadrant pain (principal); K76.89 Other specified diseases of liver; Z98.51 Tubal ligation status
CPT/HCPCS: 74177; 76830; 80048; 81001; 84703; 85025; 93976; 96360; 99282; Q9967; A4216